=== PATIENT | female | born 1960 | race Caucasian/White ===

== ENCOUNTER → 2019-03-26 14:26 | Outpatient (CLI) | payer BC, SELFPAY ==
[2019-03-26 13:53] VITALS: BMI 27.4
--- NOTE | 2019-03-26 14:53 | RAD_ITS ---
STUDY: X-RAY CHEST REASON FOR EXAM: Female, 58 years old. Cough. TECHNIQUE: Frontal and lateral views of the chest. COMPARISON: None. FINDINGS: The lungs are clear and expanded. There is no demonstrated pleural abnormality. Normal size heart. Normal mediastinum and laura. Normal visualized pulmonary arteries. Normal visualized aortic arch and descending thoracic aorta. Normal visualized thoracic spine. Normal visualized ribs, clavicles, and shoulders. There is no demonstrated abnormality of the visualized soft tissue structures of the upper abdomen. RAD/Chest PA and Lateral IMPRESSION: Normal x-ray examination of the chest. Electronically Signed: Quinn Cuello MD at 16:01 EDT , Service support ,
== END ==
LOC: LAB 14:30 → RAD 14:46
PROVIDERS: Family Provider Family Medicine; PCP Family Medicine; Referring Provider Physician Assistant Medical; Visit Provider Physician Assistant Medical
DX: R05 Cough (principal)
CPT/HCPCS: 71046

== ENCOUNTER → 2020-04-19 09:48 | Outpatient (CLI) | payer BC, SELFPAY ==
[2019-03-26 13:53] VITALS: BMI 27.4
[2020-04-19 12:44] LABS: Anion Gap 4 (5-15); BUN 10 mg/dL (7-18); BUN/Creat Ratio 13.6 RATIO (10-20); Calcium,Total 9.2 mg/dL (8.5-10.1); Chloride 106 mmol/L (98-107); Cholesterol 239 mg/dL (200); Creatinine, Serum 0.74 mg/dL (0.55-1.02); EST Glomerular Filtration Rate 86 mL/min (>60); Est Glom Filt Rate - Afr Amer 104 mL/min (>60); Glucose 91 mg/dL (74-106); High Density Lipoprotein 51 mg/dL; Potassium 3.9 mmol/L (3.5-5.1); Sodium Level 138 mmol/L (136-145); Thyroid Stim Hormone (TSH) 4.73 uIU/mL (0.358-3.74); Triglycerides 104 mg/dL; Very Low Density Lipoprotein 21 mg/dL (5-40)
== END ==
PROVIDERS: PCP Family Medicine; Referring Provider Family Medicine; Visit Provider Family Medicine
DX: E03.9 Hypothyroidism, unspecified (principal); I10 Essential (primary) hypertension
CPT/HCPCS: 36415; 80048; 80061; 84436; 84443; 84481

== ENCOUNTER → 2020-07-19 11:03 | Outpatient (CLI) | payer BC, SELFPAY ==
[2019-03-26 13:53] VITALS: BMI 27.4
[2020-07-19 13:30] LABS: Cholesterol 180 mg/dL (200); High Density Lipoprotein 48 mg/dL; Thyroid Stim Hormone (TSH) 1.11 uIU/mL (0.358-3.74); Triglycerides 132 mg/dL; Very Low Density Lipoprotein 26 mg/dL (5-40)
== END ==
PROVIDERS: PCP Family Medicine; Visit Provider Family Medicine
DX: E78.5 Hyperlipidemia, unspecified (principal); E03.9 Hypothyroidism, unspecified
CPT/HCPCS: 36415; 80061; 84443

== ENCOUNTER → 2020-10-18 11:04 | Outpatient (CLI) | payer BC, SELFPAY ==
[2019-03-26 13:53] VITALS: BMI 27.4
[2020-10-18 13:08] LABS: Anion Gap 2 (5-15); BUN 11 mg/dL (7-18); BUN/Creat Ratio 14.6 RATIO (10-20); Calcium,Total 9.6 mg/dL (8.5-10.1); Chloride 107 mmol/L (98-107); Cholesterol 192 mg/dL (200); Creatinine, Serum 0.75 mg/dL (0.55-1.02); EST Glomerular Filtration Rate 84 mL/min (>60); Est Glom Filt Rate - Afr Amer 101 mL/min (>60); Free T3 2.8 pg/mL (2.18-3.98); Glucose 83 mg/dL (74-106); High Density Lipoprotein 65 mg/dL; Potassium 4.3 mmol/L (3.5-5.1); Sodium Level 140 mmol/L (136-145); T4 Free Direct 1.16 ng/dL (0.76-1.46); Thyroid Stim Hormone (TSH) 1.96 uIU/mL (0.358-3.74); Triglycerides 77 mg/dL; Very Low Density Lipoprotein 15 mg/dL (5-40)
== END ==
PROVIDERS: PCP Family Medicine; Referring Provider Family Medicine; Visit Provider Family Medicine
DX: I10 Essential (primary) hypertension (principal); E03.9 Hypothyroidism, unspecified
CPT/HCPCS: 36415; 80048; 80061; 84439; 84443; 84481

== ENCOUNTER 2021-11-17 09:47 | Outpatient (CLI) | payer BC, SELFPAY ==
[2021-11-17 12:15] LABS: Vitamin D,25 Hydroxy 51.5 ng/mL
[2021-11-17 12:36] LABS: Anion Gap 3 (5-15); BUN 15 mg/dL (7-18); BUN/Creat Ratio 17.8 RATIO (10-20); Calcium,Total 9.7 mg/dL (8.5-10.1); Chloride 105 mmol/L (98-107); Cholesterol 176 mg/dL (200); Creatinine, Serum 0.84 mg/dL (0.55-1.02); EST Glomerular Filtration Rate 74 mL/min (>60); Est Glom Filt Rate - Afr Amer 89 mL/min (>60); Glucose 102 mg/dL (74-106); High Density Lipoprotein 56 mg/dL; Potassium 4.8 mmol/L (3.5-5.1); Sodium Level 136 mmol/L (136-145); Triglycerides 137 mg/dL; Very Low Density Lipoprotein 27 mg/dL (5-40)
== END 2021-11-17 23:59 | disposition home or self-care (01) ==
LOC: MFPLAB 09:48
PROVIDERS: PCP Family Medicine; Referring Provider Family Medicine; Visit Provider Family Medicine
DX: Z00.00 Encounter for general adult medical examination without abnormal findings (principal); I10 Essential (primary) hypertension
CPT/HCPCS: 36415; 80048; 80061; 82306

== ENCOUNTER → 2022-06-25 | Outpatient (CLI) | payer BC, SELFPAY ==
[2022-06-25 12:34] LABS: Anion Gap 5 (5-15); BUN 13 mg/dL (7-18); BUN/Creat Ratio 15.3 RATIO (10-20); Calcium,Total 9.6 mg/dL (8.5-10.1); Chloride 107 mmol/L (98-107); Cholesterol 183 mg/dL (200); Creatinine, Serum 0.85 mg/dL (0.55-1.02); EST Glomerular Filtration Rate 73 mL/min (>60); Est Glom Filt Rate - Afr Amer 88 mL/min (>60); Free T3 2.6 pg/mL (2.18-3.98); Glucose 102 mg/dL (74-106); High Density Lipoprotein 57 mg/dL; Potassium 4.3 mmol/L (3.5-5.1); Sodium Level 138 mmol/L (136-145); T4 Free Direct 1.18 ng/dL (0.76-1.46); Thyroid Stim Hormone (TSH) 2.81 uIU/mL (0.358-3.74); Triglycerides 105 mg/dL; Very Low Density Lipoprotein 21 mg/dL (5-40)
== END | disposition home or self-care (01) ==
LOC: MFPLAB 09:56
PROVIDERS: PCP Family Medicine; Referring Provider Family Medicine; Visit Provider Family Medicine
DX: I10 Essential (primary) hypertension (principal); E03.9 Hypothyroidism, unspecified
CPT/HCPCS: 36415; 80048; 80061; 84439; 84443; 84481

== ENCOUNTER → 2023-03-15 | Outpatient (CLI) | payer BC, SELFPAY ==
[2023-03-15 12:56] LABS: Anion Gap 5 (5-15); BUN 12 mg/dL (7-18); BUN/Creat Ratio 14.8 RATIO (10-20); Calcium,Total 9.4 mg/dL (8.5-10.1); Chloride 107 mmol/L (98-107); Cholesterol 162 mg/dL (200); Creatinine, Serum 0.81 mg/dL (0.55-1.02); EST Glomerular Filtration Rate 76 mL/min (>60); Est Glom Filt Rate - Afr Amer 92 mL/min (>60); Free T3 2.3 pg/mL (2.18-3.98); Glucose 100 mg/dL (74-106); High Density Lipoprotein 47 mg/dL; Potassium 4.4 mmol/L (3.5-5.1); Sodium Level 137 mmol/L (136-145); Thyroid Stim Hormone (TSH) 2.83 uIU/mL (0.358-3.74); Triglycerides 131 mg/dL; Very Low Density Lipoprotein 26 mg/dL (5-40)
== END | disposition home or self-care (01) ==
PROVIDERS: PCP Family Medicine; Referring Provider Family Medicine; Visit Provider Family Medicine
DX: I10 Essential (primary) hypertension (principal); E78.5 Hyperlipidemia, unspecified; E03.9 Hypothyroidism, unspecified
CPT/HCPCS: 36415; 80048; 80061; 84439; 84443; 84481

== ENCOUNTER → 2023-03-18 | Outpatient (CLI) | payer BC, SELFPAY ==
--- NOTE | 2023-03-18 12:53 | BI_ITS ---
MAMMOGRAPHY - BILATERAL SCREENING 3-D TOMOSYNTHESIS REASON FOR EXAM: Female, 62 years old. Routine screening PERTINENT HISTORY: No significant family history. Implants TECHNIQUE: 2-D mammograms and 3-D Tomosynthesis of the breast (s) were performed, along with implant displaced views. CAD was performed. COMPARISON: None. Baseline examination. FINDINGS: The breast composition is almost entirely fat. Scattered benign calcifications are seen. No dense spiculated masses or suspicious microcalcifications are identified. No architectural distortion is identified. There is no skin thickening or retraction. Implants are intact and free of complication BI/SCRN MAMM (CAD)W/MANSOOR BILAT IMPRESSION: No mammographic signs of malignancy. Routine yearly mammograms recommended. ASSESSMENT CATEGORY: BIRADS Category 1: Negative. A letter regarding these results will be sent to the patient by the facility within 30 days. FOLLOW UP RECOMMENDATION: Yearly follow up mammogram recommended. (A) Approximately 10% of breast cancers are not detected by mammography. A normal mammogram should not delay biopsy of a clinically suspicious abnormality. Electronically Signed: Jarad Miguel MD at 14:15 EDT ,
== END | disposition home or self-care (01) ==
LOC: OPBI 12:52
PROVIDERS: PCP Family Medicine; Referring Provider Family Medicine; Visit Provider Family Medicine
DX: Z12.31 Encounter for screening mammogram for malignant neoplasm of breast (principal)
CPT/HCPCS: 77063; 77067

== ENCOUNTER → 2023-10-29 | Outpatient (CLI) | payer BC, SELFPAY ==
[2023-10-29 16:31] LABS: Anion Gap 3 (5-15); BUN 16 mg/dL (7-18); BUN/Creat Ratio 19.4 RATIO (10-20); Calcium,Total 9.9 mg/dL (8.5-10.1); Chloride 106 mmol/L (98-107); Cholesterol 164 mg/dL (200); Creatinine, Serum 0.82 mg/dL (0.55-1.02); EST Glomerular Filtration Rate 75 mL/min (>60); Est Glom Filt Rate - Afr Amer 91 mL/min (>60); Free T3 2.5 pg/mL (2.18-3.98); Glucose 94 mg/dL (74-106); High Density Lipoprotein 47 mg/dL; Potassium 4.5 mmol/L (3.5-5.1); Sodium Level 137 mmol/L (136-145); T4 Free Direct 1.26 ng/dL (0.76-1.46); Thyroid Stim Hormone (TSH) 2.42 uIU/mL (0.358-3.74); Triglycerides 120 mg/dL; Very Low Density Lipoprotein 24 mg/dL (5-40)
== END | disposition home or self-care (01) ==
LOC: MFPLAB 11:43
PROVIDERS: PCP Family Medicine; Visit Provider Family Medicine
DX: I10 Essential (primary) hypertension (principal); E03.9 Hypothyroidism, unspecified
CPT/HCPCS: 36415; 80048; 80061; 84439; 84443; 84481

== ENCOUNTER 2024-06-16 11:47 | Emergency (ER) | payer BC, SELFPAY ==
[2024-06-16 11:48] VITALS: BP 177/102; PULSE 92; RESP 18; TEMP 36.5; O2SAT 100; BMI 40.3
--- NOTE | 2024-06-16 11:50 | CT_ITS ---
STUDY: CT ABDOMEN AND PELVIS WITH CONTRAST - URINARY TRACT REASON FOR EXAM: Female, 64 years old. RLQ abdominal pain RADIATION DOSAGE (If Supplied By Facility): CTDIvol = ( 16.97 ) mGy, DLP = ( 1205.59 ) mGycm TECHNIQUE: IV 100mL Isovue-300 was administered. Transaxial images were obtained from the dome of the diaphragm to the symphysis pubis subsequent to intravenous contrast administration. Multiplanar coronal and sagittal images were reformatted. The protocol utilizes one or more of the following dose reduction techniques: automated exposure control, adjustment of mA and/or kV according to patient size,and/or use of iterative reconstruction technique. COMPARISON: No relevant prior comparison study available FINDINGS: The visualized lung bases are unremarkable. The visualized portions of the heart are within normal limits. There is partial visualization of bilateral breast implants. Normal liver. Normal gallbladder and extrahepatic biliary system. Normal spleen. Normal pancreas. Normal bilateral adrenal glands. Normal visualized stomach. There is a diverticulum arising from the small bowel. There are scattered diverticula arising from the colon. The appendix is visualized and appears normal. Normal abdominal aorta. No retroperitoneal adenopathy. Normal right kidney. Normal left kidney. The urinary bladder is incompletely distended. The endometrial cavity is prominent and low in attenuation. Normal abdominal wall. There is a grade 1 anterior spondylolisthesis of L5 on S1. CT/Abdomen/Pelvis W IV Cont ONLY IMPRESSION: Prominent and endometrial cavity may be secondary to fluid, recommend pelvic ultrasound for further evaluation. Colonic diverticulosis. Grade 1 anterior spondylolisthesis of L5 on S1. Electronically Signed: Miriam Allison MD at 13:36 EDT ,
--- NOTE | 2024-06-16 12:09 | EDS_ITS ---
HPI History of Present Illness Chief Complaint: Abd Pain Narrative Narrative: Chief complaint and HPI: Right lower quadrant abdominal pain. 64-year-old female presents for evaluation of right lower quadrant abdominal pain. Patient was sent in by her PCP Dr. Lozada to rule out appendicitis. Patient states on she developed right lower quadrant abdominal pain. She states the pain has not improved which is why she saw her PCP today. She describes it as crampy. Intermittently worsens with movement and activity. Currently rates it a 5 out of 10. States she had 1 episode of emesis on . Denies any fever, shortness of breath, chest pain, dysuria, hematuria, constipation, diarrhea. Good p.o. intake the last several days. Denies any history of abdominal surgeries. Last ate yesterday evening. Review of systems: See HPI Medications: As listed on the chart Allergies: As listed on the chart PFSH: Per chart Vital signs: As listed on the chart. Reviewed. Physical exam: Gen: A&O x3, NAD Head: Normocephalic, atraumatic Eyes: No sclera icterus, conjunctiva clear ENT: Moist mucous membranes Neck: Trachea midline, No JVD CV: RRR, no murmurs, no peripheral edema Resp: Lungs CTA BL, no w/r/c GI: Abd soft, non-distended, tender to palpation in the right lower quadrant, positive McBurney sign, no r/r/g Musc: Full ROM, no deformity Skin: Warm, dry Neuro: Alert, oriented, grossly intact, sensation intact Psych: Cooperative, appropriate mood and affect PFSH PFS Home Medications ?Medication ?Instructions ?Recorded ?Last Taken ?Type levothyroxine 25 mcg tablet PO #30 tabs 03/26/19 Unknown History cephalexin 500 mg capsule 500 mg PO BID 5 days #10 caps 06/16/24 Unknown Rx Allergy/AdvReac Type Severity Reaction Status Date / Time No Known Allergies Allergy Verified 06/16/24 11:48 Social History (Updated 03/26/19 @ 14:21 by Lisa JOHNSTON, PA) Smoking Status: Never smoker alcohol intake: never EXAM Physical Exam Const Vital Signs: 06/16/24 11:48 06/16/24 13:47 06/16/24 15:00 Temperature 97.7 F L Temperature Source Oral Pulse Rate 92 76 91 Respiratory Rate 18 16 16 Blood Pressure 177/102 H 166/94 H 153/79 H Blood Pressure Mean 127 118 103 Pulse Ox 100 99 96 Oxygen Delivery Method Room Air Room Air MDM MDM MDM Narrative Medical decision making narrative: 64-year-old female presents for evaluation of right lower quadrant abdominal pain. Differential diagnosis includes but is not limited to appendicitis, colitis, enteritis, UTI, diverticulitis. Morphine, Zofran ordered for symptoms. Abdominal pain workup ordered including CT abdomen and pelvis. CBC unremarkable without leukocytosis or anemia. CMP unremarkable without LORENA or transaminitis. Lipase unremarkable. UA positive for UTI. Rocephin ordered. Will send culture. However this is not the cleanest sample given 10-[address] abdomen pelvis shows a prominent endometrial cavity. Recommend pelvic ultrasound. Otherwise no acute process. Ultrasound was ordered patient has not endometrial stripe that measures 8.7 mm which is thickened for a postmenopausal patient. Patient denies vaginal bleeding. At this point in time, no clear indication for patient right lower quadrant naomy pain. May be secondary to UTI. Patient will be placed on a 5-day course of Keflex. She needs to follow-up with the paint mixer machine I referred her to for further evaluation of her thickened endometrium. She confirmed understanding of plan. I did call Dr. Lozada and update him on the results. Patient is stable to discharge home. Impression: 1. UTI 2. Thickened endometrium 3. Right lower quadrant abdominal pain Lab Data Labs: Laboratory Results - last 24 hr 06/16/24 06/16/24 12:12 12:37 WBC 7.6 RBC 4.68 Hgb 13.7 Hct 41.1 MCV 87.8 MCH 29.3 MCHC 33.3 RDW Std Deviation 50.5 H RDW Coeff of Heide 15.7 H Plt Count 229 MPV 9.7 Immature Gran % (Auto) 0.100 Neut % (Auto) 66.7 Lymph % (Auto) 25.8 [place] % (Auto) 6.6 Eos % (Auto) 0.5 Baso % (Auto) 0.3 Absolute Neuts (auto) 5.1 Absolute Lymphs (auto) 1.96 Nucleated RBC % 0 Sodium 137 Potassium 3.8 Chloride 106 Carbon Dioxide 25.0 Anion Gap 6 BUN 13 Creatinine 0.93 Estim Creat Clear Calc 74.71 Est GFR (MDRD) Af Amer 78 Est GFR (MDRD) Non-Af 65 BUN/Creatinine Ratio 13.9 Glucose 106 Calcium 9.7 Total Bilirubin 0.70 AST 23 ALT 30 Alkaline Phosphatase 76 Total Protein 9.2 H Albumin 3.9 Globulin 5.3 H Albumin/Globulin Ratio 0.7 L Lipase 52 Urine Color Yellow Urine Clarity Cloudy Urine pH 6.0 Ur Specific [place] 1.025 Urine Protein 30 H Urine Glucose (UA) Normal Urine Ketones 50 H Urine Occult Blood 25 H Urine Nitrite Negative Urine Bilirubin 1 H Urine Urobilinogen 4 H Ur Leukocyte Esterase 25 H Urine RBC 0 SEEN Urine WBC 0-5 SEEN Ur Squamous Epith Cells 10-25 SEEN Urine Bacteria 2+ Urine Mucus 0 SEEN Radiography Diagnostic Testing: Clinical Impression(s) from Imaging Studies Abdomen/Pelvis CT 06/16/24 11:50 IMPRESSION: Prominent and endometrial cavity may be secondary to fluid, recommend pelvic ultrasound for further evaluation. Colonic diverticulosis. Grade 1 anterior spondylolisthesis of L5 on S1. Electronically Signed: Miriam Allison MD at 13:36 EDT Reading Location ID and State: [facility] / [place] Tel , Service support , Transvaginal US 06/16/24 13:39 IMPRESSION: Abnormally thickened endometrial stripe. Nonvisualization of the ovaries secondary to overlying bowel gas. Electronically Signed: Miriam Allison MD at 14:41 EDT , Discharge Plan Triage Chief Complaint: Abd Pain ED Provider: Lefty Rodriguez Dx/Rx/DC Orders Clinical Impression: UTI (urinary tract infection), bacterial, Endometrial thickening on ultrasound Instructions: ED Cystitis Female Adult Prescriptions: New cephalexin 500 mg capsule 500 mg PO BID 5 Days Qty: 10 0RF No Action levothyroxine 25 mcg tablet PO Qty: 30 Primary Care Provider: Aleksander Lozada Referrals: Jodi Bartholomew MD [Med Staff - Active Staff] - 3-5 Days Aleksander Lozada MD [Primary Care Provider] - 3-5 Days Activity Restrictions/Additional Instructions: Follow-up with your PCP. Follow-up with gynecology for your thickened endometrium. Return back to the ED if symptoms change or worsen. Print Language: Sudanese Disposition Disposition: Home, Self Care Discharge Date/Time: 06/16/24 16:11
[2024-06-16 12:19] LABS: Absolute Lymphocyte Count 1.96 X10^3/uL (0.83-4.51); Absolute Neutrophil Count 5.1 X10^3/uL (2.0-7.7); Basophil# 0.02 X10^3/uL; Basophil% 0.3 % (0-1); Eosinophil# 0.04 X10^3/uL; Eosinophils% 0.5 % (0-5); Hematocrit 41.1 % (37-47); Hemoglobin 13.7 g/dL (12.0-15.0); Lymphocyte # 1.96 X10^3/ul (0.83-4.51); Lymphocyte % 25.8 % (19-41); Mean Corp Hgb Conc 33.3 g/dL (32-36); Mean Corpuscular Hgb 29.3 pg (27.0-32.0); Mean Corpuscular Volume 87.8 fL (81-99); Mean Platelet Vol. 9.7 fl (6.2-12.0); Monocyte% 6.6 % (0-10); NRBC Flagged by Analyzer 0 % (0-5); Neutrophil # 5.07 X10^3/uL (2.7-7.7); Neutrophil % 66.7 % (47-70); Platelet Count 229 K/mm3 (150-450); RBC Distribution Width CV 15.7 % (11.6-14.6); RBC Distribution Width SD 50.5 fl (35.1-43.9); Red Blood Count 4.68 M/mm3 (4.2-5.4); White Blood Count 7.6 K/mm3 (4.4-11.0)
[2024-06-16 12:44] LABS: Mucous, Urine 0 SEEN /hpf (<or=2+); Red Blood Cells-Urine 0 SEEN /hpf (0-5)
[2024-06-16 12:45] LABS: ALB/GLOB Ratio 0.7 RATIO (0.9-2.4); AST(SGOT) 23 U/L (15-37); Alanine Aminotransfer ALT/SGPT 30 U/L (13-56); Albumin, Serum 3.9 g/dL (3.2-5.0); Alkaline Phosphatase 76 U/L (45-117); Anion Gap 6 (5-15); BUN 13 mg/dL (7-18); BUN/Creat Ratio 13.9 RATIO (10-20); Calcium,Total 9.7 mg/dL (8.5-10.1); Chloride 106 mmol/L (98-107); Creatinine, Serum 0.93 mg/dL (0.55-1.02); EST Glomerular Filtration Rate 65 mL/min (>60); Est Glom Filt Rate - Afr Amer 78 mL/min (>60); Estimated Creatinine Clearance 74.71 ml/min; Globulin 5.3 g/dL (2.2-4.2); Glucose 106 mg/dL (74-106); Lipase 52 U/L (13-75); Potassium 3.8 mmol/L (3.5-5.1); Protein, Total 9.2 g/dL (6.4-8.2); Sodium Level 137 mmol/L (136-145)
[2024-06-16 13:13] LABS: Color, Urine Yellow (Yellow); Glucose, Dipstick Normal (Normal); Ketone-Dipstick 50 mg/dl (Negative); Leukocyte Esterase-Dipstick 25 /ul (Negative); Nitrite-Dipstick Negative (Negative); Occult Blood-Urine 25 /ul (Negative); Protein-Dipstick 30 mg/dl (Negative); Specific Gravity, Urine 1.025 (1.002-1.030); Urine Clarity Cloudy (Clear); Urine Urobilinogen 4 mg/dl (Normal)
[2024-06-16 13:22] LABS: Urine Bilirubin Dipstick 1 mg/dL (Negative)
[2024-06-16 13:26] LABS: Bacteria 2+ /hpf (None Seen); Squamous Epithelial Cells - UA 10-25 SEEN /hpf (5-10)
[2024-06-16 13:27] LABS: White Blood Cells 0-5 SEEN /hpf (0-5)
--- NOTE | 2024-06-16 13:39 | US_ITS ---
INDICATION: Prominent endometrial cavity EXAMINATION: Ultrasound US Transvaginal Non-OB TECHNIQUE: Transvaginal (for optimal evaluation of the adnexa) pelvic ultrasound was performed. Grayscale, spectral waveform, and color flow Doppler evaluation of the adnexa. COMPARISON: CT dated June 16, 2024 FINDINGS: UTERUS: The uterus measures 9.2 x 4.2 x 4.7 cm. There is no uterine mass.The endometrial stripe measures 8.7 mm in AP diameter which is thickened for a postmenopausal patient. RIGHT OVARY: There is nonvisualization of the right ovary. LEFT OVARY: There is nonvisualization of the left ovary. FREE FLUID: None. US/Transvaginal Non- IMPRESSION: Abnormally thickened endometrial stripe. Nonvisualization of the ovaries secondary to overlying bowel gas. Electronically Signed: Miriam Allison MD at 14:41 EDT ,
[2024-06-16 13:47] VITALS: BP 166/94; PULSE 76; RESP 16; O2SAT 99
[2024-06-16 15:00] VITALS: BP 153/79; PULSE 91; RESP 16; O2SAT 96
[2024-06-16] MEDS: Ceftriaxone 1 GM/50 ML BAG IV (15:23)
== END 2024-06-16 16:11 | disposition home or self-care (01) ==
PROVIDERS: Emergency Provider Surgery; PCP Family Medicine; Visit Provider Surgery
DX: N39.0 Urinary tract infection, site not specified (principal); R10.31 Right lower quadrant pain; R93.89 Abnormal findings on diagnostic imaging of other specified body structures
CPT/HCPCS: 74177; 76830; 80053; 81001; 83690; 85025; 87086; 87088; 96365; 99283; Q9967; A4216; J2405

== ENCOUNTER → 2024-07-10 | Outpatient (CLI) | payer BC, SELFPAY ==
[2024-07-10 13:14] LABS: Anion Gap 7 (5-15); BUN 14 mg/dL (7-18); Calcium,Total 9.4 mg/dL (8.5-10.1); Chloride 107 mmol/L (98-107); Cholesterol 176 mg/dL (200); Creatinine, Serum 0.82 mg/dL (0.55-1.02); EST Glomerular Filtration Rate 75 mL/min (>60); Est Glom Filt Rate - Afr Amer 90 mL/min (>60); Free T3 2.5 pg/mL (2.18-3.98); Glucose 103 mg/dL (74-106); High Density Lipoprotein 56 mg/dL; Potassium 4.2 mmol/L (3.5-5.1); Sodium Level 139 mmol/L (136-145); T4 Free Direct 1.11 ng/dL (0.76-1.46); Triglycerides 106 mg/dL; Very Low Density Lipoprotein 21 mg/dL (5-40)
== END | disposition home or self-care (01) ==
LOC: MFPLAB 10:22
PROVIDERS: PCP Family Medicine; Visit Provider Family Medicine
DX: Z00.00 Encounter for general adult medical examination without abnormal findings (principal); E03.9 Hypothyroidism, unspecified
CPT/HCPCS: 36415; 80048; 80061; 84439; 84443; 84481

== ENCOUNTER → 2025-03-12 | Outpatient (CLI) | payer BC, SELFPAY ==
[2025-03-12 15:40] LABS: AST(SGOT) 23 U/L (<=31); Alanine Aminotransfer ALT/SGPT 22 U/L (<=34); Albumin, Serum 4.3 g/dL (3.4-4.8); Alkaline Phosphatase 72 U/L (35-104); Anion Gap 11 (5-15); BUN 14 mg/dL (4-19); BUN/Creat Ratio 17.4 RATIO (10-20); Calcium,Total 10.0 mg/dL (7.6-11.0); Carbon Dioxide 25.3 mmol/L (21.0-32.0); Chloride 101 mmol/L (98-108); Cholesterol 198 mg/dL (<=200); Free T3 2.5 pg/mL (2.18-3.98); Globulin 4.2 g/dL (2.2-4.2); Glucose 102 mg/dL (70-99); Low Density Lipoprotein Calc. 118 mg/dL; Potassium 4.4 mmol/L (3.3-5.1); Triglycerides 134 mg/dL; Very Low Density Lipoprotein 27 mg/dL (5-40); cholesterol:hdl ratio screen 3.70
== END | disposition home or self-care (01) ==
LOC: MFPLAB 12:04
PROVIDERS: PCP Family Medicine; Referring Provider Family Medicine; Visit Provider Family Medicine
DX: E03.9 Hypothyroidism, unspecified (principal); I10 Essential (primary) hypertension
CPT/HCPCS: 36415; 80053; 80061; 84439; 84443; 84481